=== PATIENT | male | born 1985 | race Caucasian/White ===

== ENCOUNTER → 2020-04-17 14:52 | Outpatient (BNVA) | payer OTHER, SELFPAY | PROVIDERS: PCP Nurse Practitioner Family; Visit Provider Nurse Practitioner | DX: Z11.59 Encounter for screening for other viral diseases (principal); J20.9 Acute bronchitis, unspecified; Z68.25 Body mass index [BMI] 25.0-25.9, adult; F17.290 Nicotine dependence, other tobacco product, uncomplicated | CPT/HCPCS: 87635 ==

== ENCOUNTER 2021-01-21 17:07 | Emergency (ER) | payer SELFPAY ==
[2021-01-21 17:08] VITALS: BP 124/72; PULSE 103; RESP 18; TEMP 36.8; O2SAT 95; BMI 25.6
--- NOTE | 2021-01-21 17:29 | XRR_ITS ---
PROCEDURE INFORMATION: Exam: XR Chest Exam date and time: 01/21/2021 5:43 PM Age: 35 years old Clinical indication: Other: Seizure; Additional info: Malcolm TECHNIQUE: Imaging protocol: XR of the chest. Views: 1 view. COMPARISON: No relevant prior studies available. FINDINGS: Lungs: Unremarkable. No consolidation. Pleural spaces: Unremarkable. No pleural effusion. No pneumothorax. Heart/Mediastinum: Unremarkable. No cardiomegaly. Bones/joints: Unremarkable. XR/XR chest 1V portable [id number] IMPRESSION: No acute findings.
--- NOTE | 2021-01-21 17:29 | CTR_ITS ---
PROCEDURE INFORMATION: Exam: CT Head Without Contrast Exam date and time: 01/21/2021 5:46 PM Age: 35 years old Clinical indication: Pain; Headache; Other: Post seizure; Patient HX: C/O KIM after single witnessed seizure; Additional info: Malcolm TECHNIQUE: Imaging protocol: Computed tomography of the head without contrast. Radiation optimization: All CT scans at this facility use at least one of these dose optimization techniques: automated exposure control; mA and/or kV adjustment per patient size (includes targeted exams where dose is matched to clinical indication); or iterative reconstruction. COMPARISON: No relevant prior studies available. RADIATION DOSE METRICS: Total DLP (mGy-cm): 899.07 FINDINGS: Brain: Normal. No hemorrhage. Unremarkable white matter. No mass effect. Cerebral ventricles: No ventriculomegaly. Bones/joints: Unremarkable. No acute fracture. Paranasal sinuses: Visualized sinuses are unremarkable. No fluid levels. Mastoid air cells: Visualized mastoid air cells are well aerated. Soft tissues: Unremarkable. CT/CT head wo con* 13231 IMPRESSION: No acute intracranial abnormality. Radiation Dose CTDIVOL = (mGy): DLP = 899.07 (mGy-cm)
--- NOTE | 2021-01-21 17:31 | ECG_ITS ---
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
[2021-01-21 18:15] LABS: Basophils # 0.1 10^3/uL (0.0-0.1); Basophils % 0.5 %; Eosinophils # 0.1 10^3/uL (0.0-0.8); Eosinophils % 0.4 %; Hematocrit 49.3 % (42.0-52.0); Hemoglobin 16.1 g/dL (11.7-16.6); Lymphocytes # 4.8 10^3/uL (0.8-4.8); Lymphocytes % 32.7 %; Mean Corpuscular HGB Conc 32.7 g/dL (30.0-36.0); Mean Corpuscular Hemoglobin 29.7 pg (28.0-34.0); Monocytes % 6.6 %; Neutrophils % 59.4 %; Nucleated Red Blood Cells % 0 %; Platelet Count 400 10^3/cmm (130-400); Red Blood Count 5.42 10^6/uL (4.1-5.3); Red Cell Distribution Width 12.2 % (12.1-15.1); White Blood Count 14.8 10^3/uL (4.0-10.0)
[2021-01-21] MEDS: sodium chloride 0.9% 1,000 ML 999 ML IV (18:24)
[2021-01-21 18:28] LABS: Alanine Aminotransferase 18 U/L (0-41); Albumin Level 4.8 g/dL (3.5-5.2); Alkaline Phosphatase 91 IU/L (40-130); Anion Gap 29.6 (5-19); Aspartate Amino Transferase 16 U/L (0-40); Blood Urea Nitrogen 8 mg/dL (6-20); Calcium 9.4 mg/dL (8.5-10.5); Carbon Dioxide 16 mmol/L (22-29); Chloride 100 mmol/L (98-107); Globulin 2.7 g/dL (1.3-4.6); Glucose 96 mg/dL (65-115); Magnesium 2.3 mg/dL (1.7-2.3); Osmolality Calculated 292 mOsm/kg (285-295); Phosphorus 4.9 mg/dL (2.5-4.5); Potassium 3.6 mmol/L (3.5-5.1); Sodium 142 mmol/L (136-145); Total Bilirubin 0.4 mg/dL (0.15-1.2); Total Protein 7.5 g/dL (6.6-8.7)
[2021-01-21 18:29] LABS: Alcohol Level < 10 mg/dL (0-10)
[2021-01-21 19:01] VITALS: BP 125/83; PULSE 80; RESP 11; O2SAT 97
[2021-01-21 19:11] LABS: Add Urine Microscopic? NO; Charge for UA Resulting for Rev
[2021-01-21 19:19] LABS: Bilirubin Urine Neg (Negative); Blood Urine Neg (Negative); Glucose Urine UA Norm (Normal); Ketones Urine Negative (Negative); Leukocyte Esterase Urine Negative (Negative); Nitrate Urine Negative (Negative); Protein Urine Neg (Negative); Specific Gravity, Urine 1.015 (1.005-1.030); Urine Appearance Clear (CLEAR); Urine Color Yellow (Yellow); Urobilinogen Urine Norm (Negative); pH Urine 6 (5-7)
[2021-01-21 19:23] LABS: Amphetamines Screen Urine Negative (Negative); Barbiturates Screen Urine Negative (Negative); Benzodiazepines Screen Urine Negative (Negative); Cocaine Screen Urine Negative (Negative); Opiate Screen Urine Positive (Negative); PCP Screen Urine Negative (Negative); THC Screen Urine Negative (Negative)
--- NOTE | 2021-01-21 19:42 | W.ED.SEIZURE ---
HPI - Seizure General: Chief Complaint: Seizure Stated Complaint: SEIZURE Time Seen by Provider: 01/21/21 17:29 History of Present Illness: HPI Narrative: 35-year-old male who is essentially healthy. Today he had gone outside briefly to check on his kids, when he came back indoors, his states that his knees kind of buckled, and he slowly fell to the floor. He did not hit his head. He was not responding to her at this point. She states that his eyes were rolled back in his head, that he shook, and then his arms got stiff. This episode lasted around a minute during which he was not responsive. He did bite his tongue. He began to wake up some, and was very confused for a short period. The patient has no recollection of this. He remembers brief parts of the trip to the hospital in the ambulance. He did not stop breathing. On EMS arrival, he was awake and talking. MD complaint: possible seizure Onset (ago): minute(s) Description of Episode: loss of consciousness, tonic-clonic movement and post-event confusion Duration of episode: 1 -: minutes(s) Witnessed: Yes - by Bystander Trauma: No Seizure History: No Place: Home Possible Precipitating Event: none Associated symptoms: Reports syncope; Deny chest pain, chills, diaphoresis, fever(s), anorexia or rash Treatments prior to arrival: none Review of Systems Const: Denies: fever(s), chills or diaphoresis Eyes: Denies: change in vision ENMT: Denies: throat pain or nasal congestion Card: Reports: syncope; Denies: chest pain Resp: Denies: dyspnea, productive cough or non-productive cough GI: Denies: abdominal pain, nausea or vomiting : Denies: difficulty urinating Neuro: Denies: headache(s), numbness in extremities, weakness in extremities or dizziness PFS ED PFSH: Social History Smoking and tobacco status: current every day smoker e-cigarettes Physical Exam Const: GENERAL APPEARANCE: well developed ORIENTATION/CONSCIOUSNESS: Yes oriented to person, Yes oriented to place and Yes oriented to time HENMT: COMMON NORMALS: normocephalic, external ears normal and Normal external nose present HEAD & SCALP: normocephalic FACE & SINUS: normal facial exam NOSE: Normal external nose present and No nasal discharge present EXTERNAL EAR: Yes external ears normal MOUTH: tongue abnormal (Small abrasion to the left, likely from bite) TEETH & GINGIVA: no abnormal tooth and associated gingiva THROAT: posterior oropharynx normal; no peritonsillar mass Eye: COMMON NORMALS: Equal, round and reactive pupils present, EOMs intact bilaterally and conjunctivae normal EYELID: eyelids normal CONJUNCTIVA: Yes conjunctivae normal PUPIL: Yes Equal, round and reactive pupils present Neck/C-Spine: GENERAL: No tracheal deviation Chest: COMMONS NORMALS: normal inspection of the chest CHEST: No tenderness Resp: COMMON NORMALS: clear to auscultation bilaterally EFFORT & INSPECTION: No tachypneic, No respiratory distress, No retractions, No uses accessory muscles and No tracheal deviation AUSCULTATION: clear to auscultation bilaterally, no rhonchi, no wheezes and lung sounds not diminished Cardio: COMMON NORMALS: regular rate and regular rhythm RATE: regular rate RHYTHM: regular rhythm HEART SOUNDS: no murmurs PERIPHERAL PULSES: radial pulses present GI: INSPECTION: No abdominal distension AUSCULTATION: No Hyperactive bowel sounds present and No Hypoactive bowel sounds present PALPATION: No Guarding due to palpation present (GI) and No Rigid due to palpation PERCUSSION: no dullness to percussion and no tympanic to percussion Neuro: SENSORIUM/ORIENTATION: Yes oriented to person, Yes oriented to place and Yes oriented to time CRANIAL NERVES: Yes CN normal except as noted COORDINATION/BALANCE: [id number] test normal, [id number]-ng-gnvb test normal and Normal rapid alternating movements of the distal upper extremity present (Neuro) SPEECH: speech normal SENSORY EXAM: Yes extremities (Intact) MOTOR EXAM: 5/5 motor strength present throughout and Pronator motor function not present COORDINATION: [id number]-ff-aedb test normal, seth-no-hrjh test normal and rapid alternating movement UE normal Psych: COMMON NORMALS: mental status grossly normal Skin: COMMON NORMALS: no rashes or lesions noted GENERAL SKIN EXAM: no rashes or lesions noted Course Vital Signs: Vital signs: Vital Signs Temperature 98.2 F 01/21/21 17:08 Pulse Rate 76 01/21/21 20:33 Respiratory Rate 16 01/21/21 20:33 Blood Pressure 116/72 01/21/21 20:33 Pulse Oximetry 99 01/21/21 20:33 MDM - Seizure MDM Narrative: Medical decision making narrative: 35-year-old male with what appears to be a short lived seizure. No inciting event. His bicarbonate level is 16, mild elevation of white blood cell count without left shift, otherwise his labs are benign awaiting a CT scan read. His chest x-ray is normal. His urine drug screen is positive for opiates, although I do not see any prescribed no alcohol, etc. Blood pressure 117/82, pulse 66, saturations 95% with respiration 16 on room air if CT scan negative he will be allowed home for outpatient follow-up. Lab Data: Labs: Lab Results 01/21/21 01/21/21 01/21/21 Range/Units 16:58 16:58 18:30 WBC 14.8 H (4.0-10.0) 10^3/ uL RBC 5.42 H (4.1-5.3) 10^6/u L Hgb 16.1 (11.7-16.6) g/dL Hct 49.3 (42.0-52.0) % MCV 91.0 (80-94) fL MCH 29.7 (28.0-34.0) pg MCHC 32.7 (30.0-36.0) g/dL RDW 12.2 (12.1-15.1) % Plt Count 400 (130-400) 10^3/c mm MPV 10.0 (7.4-10.4) fL Neut % (Auto) 59.4 % Lymph % (Auto) 32.7 % Daniels % (Auto) 6.6 % Eos % (Auto) 0.4 % Baso % (Auto) 0.5 % Neut # (Auto) 8.80 H (1.8-7.7) 10^3/u L Lymph # (Auto) 4.8 (0.8-4.8) 10^3/u L Daniels # (Auto) 1.0 H (0.2-0.9) 10^3/u L Eos # (Auto) 0.1 (0.0-0.8) 10^3/u L Baso # (Auto) 0.1 (0.0-0.1) 10^3/u L Nucleated RBC % (a uto) 0 % Nucleated RBCs # 0.0 /100WBC Sodium 142 (136-145) mmol/L Potassium 3.6 (3.5-5.1) mmol/L Chloride 100 (98-107) mmol/L Carbon Dioxide 16 L (22-29) mmol/L Anion Gap 29.6 H (5-19) BUN 8 (6-20) mg/dL Creatinine 0.9 (0.7-1.2) mg/dL GFR Calculation 96.0 (90-130) mL/min Glucose 96 (65-115) mg/dL Calculated Osmolal ity 292 (285-295) mOsm/k g Calcium 9.4 (8.5-10.5) mg/dL Phosphorus 4.9 H (2.5-4.5) mg/dL Magnesium 2.3 (1.7-2.3) mg/dL Total Bilirubin 0.4 (0.15-1.2) mg/dL AST 16 (0-40) U/L ALT 18 (0-41) U/L Alkaline Phosphata se 91 (40-130) IU/L Total Protein 7.5 (6.6-8.7) g/dL Albumin 4.8 (3.5-5.2) g/dL Globulin 2.7 (1.3-4.6) g/dL Urine Color Yellow (Yellow) Urine Appearance Clear (CLEAR) Urine pH 6 (5-7) Ur Specific Gravit y 1.015 (1.005-1.030) Urine Protein Neg (Negative) Urine Glucose (UA) Norm (Normal) Urine Ketones Negative (Negative) Urine Blood Neg (Negative) Urine Nitrate Negative (Negative) Urine Bilirubin Neg (Negative) Urine Urobilinogen Norm (Negative) mg/dL Ur Leukocyte Carolina ase Negative (Negative) Urine Opiates Scre en (Negative) ng/mL Ur Barbiturates Sc reen (Negative) ng/mL Ur Phencyclidine S crn (Negative) ng/mL Ur Amphetamines Sc reen (Negative) ng/mL U Benzodiazepines Scrn (Negative) ng/mL Urine Cocaine Scre en (Negative) ng/mL U Marijuana (THC) Screen (Negative) ng/mL Ethyl Alcohol < 10 (0-10) mg/dL 01/21/21 Range/Units 18:30 WBC (4.0-10.0) 10^3/ uL RBC (4.1-5.3) 10^6/u L Hgb (11.7-16.6) g/dL Hct (42.0-52.0) % MCV (80-94) fL MCH (28.0-34.0) pg MCHC (30.0-36.0) g/dL RDW (12.1-15.1) % Plt Count (130-400) 10^3/c mm MPV (7.4-10.4) fL Neut % (Auto) % Lymph % (Auto) % Daniels % (Auto) % Eos % (Auto) % Baso % (Auto) % Neut # (Auto) (1.8-7.7) 10^3/u L Lymph # (Auto) (0.8-4.8) 10^3/u L Daniels # (Auto) (0.2-0.9) 10^3/u L Eos # (Auto) (0.0-0.8) 10^3/u L Baso # (Auto) (0.0-0.1) 10^3/u L Nucleated RBC % (a uto) % Nucleated RBCs # /100WBC Sodium (136-145) mmol/L Potassium (3.5-5.1) mmol/L Chloride (98-107) mmol/L Carbon Dioxide (22-29) mmol/L Anion Gap (5-19) BUN (6-20) mg/dL Creatinine (0.7-1.2) mg/dL GFR Calculation (90-130) mL/min Glucose (65-115) mg/dL Calculated Osmolal ity (285-295) mOsm/k g Calcium (8.5-10.5) mg/dL Phosphorus (2.5-4.5) mg/dL Magnesium (1.7-2.3) mg/dL Total Bilirubin (0.15-1.2) mg/dL AST (0-40) U/L ALT (0-41) U/L Alkaline Phosphata se (40-130) IU/L Total Protein (6.6-8.7) g/dL Albumin (3.5-5.2) g/dL Globulin (1.3-4.6) g/dL Urine Color (Yellow) Urine Appearance (CLEAR) Urine pH (5-7) Ur Specific Gravit y (1.005-1.030) Urine Protein (Negative) Urine Glucose (UA) (Normal) Urine Ketones (Negative) Urine Blood (Negative) Urine Nitrate (Negative) Urine Bilirubin (Negative) Urine Urobilinogen (Negative) mg/dL Ur Leukocyte Carolina ase (Negative) Urine Opiates Scre en Positive H (Negative) ng/mL Ur Barbiturates Sc reen Negative (Negative) ng/mL Ur Phencyclidine S crn Negative (Negative) ng/mL Ur Amphetamines Sc reen Negative (Negative) ng/mL U Benzodiazepines Scrn Negative (Negative) ng/mL Urine Cocaine Scre en Negative (Negative) ng/mL U Marijuana (THC) Screen Negative (Negative) ng/mL Ethyl Alcohol (0-10) mg/dL Discharge Plan Discharge Patient Disposition: Home Clinical Impression: New onset seizure Condition: Stable Prescriptions: No Action albuterol sulfate [Ventolin HFA] 90 mcg/actuation HFA aerosol inhaler 2 puff INHALATION QID PRN (Reason: shortness of breath or wheezing) Qty: 6.7 RF: 0 prednisone 20 mg tablet 40 mg PO DAILY 5 Days Qty: 10 RF: 0 Discharge Orders: Discharge ED (Routine); Ordered 01/21/21 Ordered By: Timo Goodman Discharge Diet: Usual diet Discharge Activity: Limit activity as instructed Patient Instructions: New-Onset Seizure in Adults (ED) Activity Restrictions/Additional Instructions: A case management referral has been placed to neurology for you. You should get a call this coming week with an appointment for neurology evaluation. You should not drive a car or operate heavy machinery until you are cleared by your doctor. Return for repeated episodes of seizure, passing out, mental status changes, weakness, any other concerns. Coding Level of Care Code ED Senior Private Client Advisor for Vonnie Fwjarred Exam Comprehensive
--- NOTE | 2021-01-21 19:59 | PC.NURSE ---
Rounded on patient and he requested water to drink. Approved by Dr. Goodman and water taken to patient at this time. Patient denies any further needs at this time.
[2021-01-21 20:00] VITALS: BP 119/76; PULSE 70; RESP 13; O2SAT 96
[2021-01-21 20:33] VITALS: BP 116/72; PULSE 76; RESP 16; O2SAT 99
--- NOTE | 2021-01-23 11:48 | DCPLANNER ---
associate project manager had message to schedule a follow up appointment for patient with Dr. Watkins, for new onset of seizures. associate project manager emailed patients information to Carol at Dr. Lyons office. Patients information will be printed and reviewed. Patients information will printed and reviewed. Clinic will call patient with appointment information.
--- NOTE | 2021-01-24 08:19 | DCPLANNER ---
Patient has a follow up appointment scheduled for , February 16, 2021 at 1:[address] Watkins. Clinic will call patient with appointment information.
--- NOTE | 2021-04-17 07:51 | DCPLANNER ---
Patient had a follow up appointment scheduled with Dr. Watkins - patient did not attend appointment.
== END 2021-01-21 20:33 | disposition home or self-care (01) ==
PROVIDERS: Emergency Provider Emergency Medicine
DX: G40.89 Other seizures (principal); F17.290 Nicotine dependence, other tobacco product, uncomplicated
CPT/HCPCS: 70450; 71045; 80053; 80306; 80307; 81003; 83735; 84100; 85025; 93005; 96360; 99284; J7030